=== PATIENT | female | born 1980 | race Caucasian/White ===

== ENCOUNTER 2017-05-20 16:42 | Emergency (ER) | payer OTHER ==
[~2017-05-20 16:42] MED LIST: CIPRO 500MG TA500 MG PO; DIFLUCAN150 MG PO; FLEXERIL10 MG PO; HYDROCODONE/ACE1 TA1 PO; IBU800 MG PO; PERCOCET 325 MG1 TA2 PO
[2017-05-20] MEDS ORDERED: FUROSEMIDE20 M1 PO (17:40)
[2017-05-20] MEDS ORDERED: POTASSIUM CHLO20 ME2 PO (17:41)
[2017-05-20] MEDS ORDERED: FOLIC ACID1 M1 PO (17:42)
[2017-05-20] MEDS ORDERED: CLONIDINE HCL0.1 MG PO (17:43)
[2017-05-20] MEDS ORDERED: OXYCODONE-ACET1 EACH PO (17:44)
--- NOTE | 2017-05-20 17:44 | ED UPPER/LOWER EXTREMITY COMPL ---
History of Present Illness General Chief Complaint: Lower Extremity Problems Stated Complaint: BILATERAL LEG AND FOOT PAIN Source: patient Exam Limitations: no limitations Vital Signs & Intake/Output Vital Signs & Intake/Output Vital Signs Date Time Temp Pulse Resp B/P B/P Pulse O2 O2 Flow FiO2 Mean Ox Delivery Rate 05/20 2218 97.0 93 19 105/58 98 Room Air 05/20 2023 96.3 104 18 121/64 97 Room Air 05/20 1648 99.0 117 15 126/78 95 Room Air Room Air Allergies Coded Allergies: Penicillins (SWELLING 05/20/17) Reconcile Medications Acetaminophen With Codeine (Acetaminophen-Cod #3 Tablet) (Unknown Strength) TABLET (Unknown Dose) UNKNOWN (Reported) Clonidine HCl 0.1 MG TABLET 1 TAB PO QPM BLOOD PRESSURE (Reported) Folic Acid 1 MG TABLET 1 TAB PO DAILY SUPPLIMENT (Reported) Furosemide 20 MG TABLET 1 TAB PO Monday DIURETIC (Reported) Oxycodone HCl/Acetaminophen (Oxycodone-Acetaminophen 5-325) 5 MG-325 MG TABLET 1 TAB PO QPM PAIN (Reported) Potassium Chloride 20 MEQ TAB.ER.PRT 1 TAB PO DAILY SUPPLIMENT (Reported) Triage Note: PT TO ED FOR BILATERAL LEG AND HAND PAIN FOR TWO WEEKS. TODAY IT BECAME WORSE. NO SWELLING NOTED. PT AMBULATORY IN TRIAGE. Triage Nurses Notes Reviewed? yes Onset: Gradual Duration: day(s): Timing: recent history Severity: severe Pain/Injury Location: Left: Leg. Bilateral: Foot. : No Patient currently breastfeeds: No HPI: 37YO Female presents to ED complaining of left lower leg pain and bilateral foot pain x 1 week. Pain is described as severe and constant, worse with movement or any pressure. She states she saw Dr. Gomez last month for leg swelling and was started on Lasix. She states she has not noted increased swelling or erythema in her lower legs. She states she has a family hx of clots in two uncles. She also reports a dry cough. She denies OCP use, recent travel or immobilization, recent surgies, dyspnea, fevers, chills. (PARAG MOSES PA-C) Past History Travel History Traveled to [place] past 21 day No Medical History Any Pertinent Medical History? see below for history Neurological: NONE EENT: NONE Cardiovascular: NONE Respiratory: NONE Gastrointestinal: NONE Hepatic: NONE Renal: NONE Musculoskeletal: NONE Psychiatric: NONE Endocrine: NONE Blood Disorders: NONE Cancer(s): NONE BILL CLERK/Reproductive: NONE Surgical History Surgical History: non-contributory Psychosocial History What is your primary language Latvian Tobacco Use: Current Daily Use Daily Tobacco Use Amount/Type: => 5 Cigarettes daily ETOH Use: occasional use Illicit Drug Use: denies illicit drug use Family History Hx Contributory? No (PARAG MOSES PA-C) Review of Systems Review of Systems Constitutional: Reports: no symptoms. EENTM: Reports: no symptoms. Respiratory: Reports: see HPI. Cardiovascular: Reports: no symptoms. Gastrointestinal/Abdominal: Reports: no symptoms. Genitourinary: Reports: no symptoms. Musculoskeletal: Reports: see HPI. Skin: Reports: no symptoms. Neurological/Psychological: Reports: no symptoms. Hematologic/Endocrine: Reports: no symptoms. Immunological: Reports: no symptoms. All Other Systems: Reviewed and Negative (PARAG MOSES PA-C) Physical Exam Physical Exam General Appearance: well developed/nourished, no apparent distress, alert, awake Head: atraumatic, normal appearance Eyes: Bilateral: normal appearance, EOMI. Ears, Nose, Throat: hearing grossly normal Neck: normal inspection, supple, full range of motion Cardiovascular/Respiratory: normal breath sounds, normal peripheral pulses, regular rate/rhythm, no respiratory distress Peripheral Pulses: 2+ dorsalis pedis (R), 2+ dorsalis pedis (L) Back: normal inspection, normal range of motion Leg Left: normal range of motion, normal inspection, tenderness to palpation Leg Right: normal range of motion, normal inspection, tenderness to palpation Neurologic/Tendon: normal sensation, normal motor functions, normal tendon functions Skin: intact, normal color, warm/dry (PARAG MOSES PA-C) Progress Differential Diagnosis: arterial insufficiency, cellulitis, contusion, DVT, fracture, gout, sprain, tendon injury, ELECTROLYTE ABNORMALITY Plan of Care: Orders Procedure Date/time Status EKG 05/20 2127 Active MAGNESIUM 05/20 1835 Complete Add-on Test (ER Only) 05/20 1834 Active COMPREHENSIVE METABOLIC PANEL 05/20 182 Complete CBC WITHOUT DIFFERENTIAL 05/20 1826 Complete Current Medications Sig/Shirlene Start time Last Medication Dose Stop Time Status Admin Potassium Chloride 40 MEQ ONCE ONE 05/20 1930 CAN (K-Dur) 05/20 1931 Laboratory Tests 05/20/17 1835: Anion Gap 21 H, Estimated GFR > 60, BUN/Creatinine Ratio 6.0 L, Glucose 94, Calcium 8.9, Magnesium 1.4 L, Total Bilirubin 2.7 H, AST 288 H, ALT 76 H, Alkaline Phosphatase 318 H, Total Protein 7.1, Albumin 3.7, Globulin 3.4, Albumin/Globulin Ratio 1.1, CBC w Diff NO MAN DIFF REQ, RBC 3.71 L, MCV 98.3, MCH 33.1 H, RDW 15.1 H, MPV 8.1, Gran % 73.8, Lymphocytes % 16.8 L, Monocytes % 8.2, Eosinophils % 0.7, Basophils % 0.5, Absolute Granulocytes 7.9 H, Absolute Lymphocytes 1.8, Absolute Monocytes 0.9 H, Absolute Eosinophils 0.1, Absolute Basophils 0.1, PUBS MCHC 33.7 Patient is requesting IV pain medication for her lower extremity pain. She is on K and Mg PO, she is unsure of why. Low K and Mg here in ED, given replacement. Possibly electrolyte abnormality explaining muscle cramps of legs. The patient was seen and evaluated by Dr. Mcadams, she was told she could not recieve IV pain medication given her recent alcohol consumption. She was given instruction on potassium rich foods to supplement her diet. The patient will follow up with her PCP for repeat electrolyte labs this week. The patient is in agreement with the plan of care. She is able to ambulate entering and exiting the ED. She is in no acute distress, her vital signs are WNL, she is non toxic appearing. The diagnosis of DVT was considered however she was perc 0, low suspicion at this time. The patient is requesting pain medication to go home with, she was given tylenol with codine at Dr. Gomez office today. Spoke with Dr. Massey regarding patient. (PARAG MOSES PA-C) Initial ED EKG: sinus rhythm at 99bmp, boarderline prolonged QT interval, QTC 504 Prior EKG: changed (prior in 2013 NSR, QTC 429) (PARAG MOSES PA-C) Departure Departure Disposition: HOME OR SELF CARE Condition: Stable Clinical Impression Primary Impression: Hypokalemia Secondary Impressions: Hypomagnesemia, Leg pain Referrals: KIT BROWNING,RADHA Fontana (PCP/Family) Additional Instructions: Follow up with your primary care doctor, call to make an appointment for this week for repeat electrolytes and EKG. Inform your primary care doctor that you were seen and evaluated here and that your potassium and magnesium were low. Continue to take your potassium and magnesium supplements. You were given additional information regarding foods rich in potassium to add to your diet. Return here with any worsening symptoms or concerns. Departure Forms: Customer Survey General Discharge Information (PARAG MOSES PA-C) PA/CASTING DIRECTOR Co-Sign Statement Statement: ED Attending supervision documentation- [] I saw and evaluated the patient. I have also reviewed all the pertinent lab results and diagnostic results. I agree with the findings and the plan of care as documented in the PA's/CASTING DIRECTOR's documentation. [X] I have reviewed the ED Record and agree with the PA's/CASTING DIRECTOR's documentation. [] Additions or exceptions (if any) to the PAs/CASTING DIRECTOR's note and plan are summarized below: [] (LYDIA BROWNING,RAISSA Enamorado)
[2017-05-20] MEDS ORDERED: ACETAMINOPHEN-1 EAC3 (17:46)
[2017-05-20 18:41] LABS: ABSOLUTE BASOPHIL COUNT 0.1 /CUMM (0.0-0.2); ABSOLUTE EOSINOPHIL COUNT 0.1 /CUMM (0.0-0.7); ABSOLUTE GRANULOCYTE CT 7.9 /CUMM (1.4-6.5); ABSOLUTE LYMPH COUNT 1.8 /CUMM (1.2-3.4); ABSOLUTE MONOCYTE COUNT 0.9 /CUMM (0.10-0.60); BASOPHIL % 0.5 % (0.0-2.0); EOSINOPHIL % 0.7 % (0-5); GRANULOCYTE % 73.8 % (42.2-75.2); HEMATOCRIT 36.5 % (37-47); MEAN CORPUSCULAR HGB 33.1 PG (27.0-31.0); MEAN CORPUSCULAR HGB CONC 33.7 G/DL (33.0-37.0); MEAN CORPUSCULAR VOLUME 98.3 FL (81.0-99.0); MEAN PLATELET VOLUME 8.1 FL (7.4-10.4); PLATELET COUNT 298 /CUMM (130-400); RBC DISTRIBUTION WIDTH 15.1 % (11.5-14.5); RED BLOOD CELL CT 3.71 /CUMM (4.20-5.40); WHITE BLOOD CELL COUNT 10.8 /CUMM (4.8-10.8)
[2017-05-20 22:18] VITALS: BP 105/58
== END 2017-05-20 22:58 ==
LOC: ERH 16:42
PROVIDERS: Physician Assistant
DX: E87.6 Hypokalemia (principal); E83.42 Hypomagnesemia; M79.605 Pain in left leg
CPT/HCPCS: 93005; 93010; 96372; 96374; J1885